=== PATIENT | female | born 1960 | race African-American/Black ===

== ENCOUNTER 2018-05-20 11:25 | Emergency (ER) | payer SELFPAY ==
[~2018-05-20] VITALS: Ht 175.3 cm; Wt 89.0 kg
[2018-05-20 11:44] VITALS: BP 130/67
[2018-05-20] MEDS ORDERED: KETOROLAC 60MG/2ML VIAL IM ONE (13:00)
== END 2018-05-20 15:10 | disposition home or self-care (01) ==
LOC: ER 11:25
DX: S83.91XA Sprain of unspecified site of right knee, initial encounter (principal); F41.9 Anxiety disorder, unspecified; E11.9 Type 2 diabetes mellitus without complications; E78.00 Pure hypercholesterolemia, unspecified; I10 Essential (primary) hypertension; Z87.891 Personal history of nicotine dependence; Z88.2 Allergy status to sulfonamides; X58.XXXA Exposure to other specified factors, initial encounter; Y93.01 Activity, walking, marching and hiking; Y92.89 Other specified places as the place of occurrence of the external cause; Y99.8 Other external cause status
CPT/HCPCS: 73562; 96372; 99283; J1885; L1830

== ENCOUNTER 2018-08-29 18:39 | Emergency (ER) | payer BC ==
[~2018-08-29] VITALS: Ht 170.2 cm; Wt 82.0 kg
[2018-08-29] MEDS ORDERED: KETOROLAC 60MG/2ML VIAL IM ONE (20:30)
[2018-08-29 20:51] LABS: CLARITY URINE CLEAR (CLEAR); COLOR URINE YELLOW (YELLOW); KETONES URINE NEGATIVE (NEGATIVE); LEUKOCYTE ESTERASE URINE NEGATIVE (NEGATIVE); NITRITE URINE NEGATIVE (NEGATIVE); OCCULT BLOOD URINE 1+ (NEGATIVE); PH URINE 6.5 (4.5-8.0); PROTEIN URINE 1+ (NEGATIVE); SPECIFIC GRAVITY URINE 1.009 (1.005-1.030); UROBILINOGEN URINE 0.2 E.U./dL (0.2-1.0)
[2018-08-29] MEDS ORDERED: HYDROCODONE/ACETAMINOPHEN 5/325MG TABLET PO ONE (21:15)
[2018-08-29 21:41] LABS: BASOPHILS % 1.3 % (0.0-2.0); HEMATOCRIT. 28.9 % (36.0-48.0); LYMPHOCYTES % 29.9 % (20.0-50.0); MEAN CORPUSCULAR HEMOGLOBIN 28.2 pg (28.0-32.0); MEAN CORPUSCULAR VOLUME 81.7 fL (81.0-99.0); MEAN PLATELET VOLUME 6.8 fl (7.4-10.4); MONOCYTES % 6.9 % (2.0-8.0); NEUTROPHILS % 60.9 % (40.0-76.0); PLATELET 259 x1000/uL (130-400); RED BLOOD CELL COUNT 3.54 mill/uL (4.2-5.4); RED CELL DISTRIBUTION WIDTH 15.4 % (11.6-14.6)
[2018-08-29 21:47] LABS: CHLORIDE 105 mEq/L (98-107)
[2018-08-29 23:26] VITALS: BP 168/78
== END 2018-08-29 23:31 | disposition home or self-care (01) ==
LOC: ER 18:39
DX: N28.1 Cyst of kidney, acquired (principal); N39.0 Urinary tract infection, site not specified; R31.0 Gross hematuria; N28.9 Disorder of kidney and ureter, unspecified; D64.9 Anemia, unspecified; I10 Essential (primary) hypertension; E11.9 Type 2 diabetes mellitus without complications
CPT/HCPCS: 36415; 74176; 80053; 81003; 85025; 96372; 99284; J1885

== ENCOUNTER 2019-07-03 19:13 | Emergency (ER) | payer BC ==
[~2019-07-03] VITALS: Ht 175.3 cm; Wt 85.0 kg
[2019-07-03] MEDS ORDERED: NAPROXEN 250MG TABLET PO ONE (20:00)
[2019-07-03] MEDS ORDERED: ACETAMINOPHEN 325MG TABLET PO ONE (20:00)
[2019-07-03 20:54] VITALS: BP 148/85
== END 2019-07-03 20:55 | disposition home or self-care (01) ==
LOC: ER 19:13
DX: M54.5 Low back pain (principal)
CPT/HCPCS: 99282; 99283

== ENCOUNTER 2019-12-08 08:48 | Inpatient (IN) | payer BC ==
[~2019-12-08] VITALS: Ht 165.1 cm; Wt 78.0 kg
[2019-12-08] MEDS ORDERED: ONDANSETRON HCL 4MG/2ML INJ IV STA (10:07)
[2019-12-08 10:16] LABS: BASOPHILS % 1.1 % (0.0-2.0); EOSINOPHILS % 1.1 % (0.0-5.0); HEMOGLOBIN. 9.9 g/dL (12.0-16.0); LYMPHOCYTES % 22.8 % (20.0-50.0); MEAN CORPUSCULAR VOLUME 84.4 fL (81.0-99.0); MEAN PLATELET VOLUME 7.5 fl (7.4-10.4); MONOCYTES % 5.9 % (2.0-8.0); NEUTROPHILS % 69.1 % (40.0-76.0); PLATELET 252 x1000/uL (130-400); RED BLOOD CELL COUNT 3.55 mill/uL (4.2-5.4); RED CELL DISTRIBUTION WIDTH 15.2 % (11.6-14.6)
[2019-12-08 10:20] LABS: CHLORIDE 106 mEq/L (98-107)
[2019-12-08] MEDS ORDERED: SODIUM CHLORIDE 0.9% 1,000 ML IV ONE (10:45)
[2019-12-08 10:49] LABS: CLARITY URINE CLEAR (CLEAR); COLOR URINE YELLOW (YELLOW); KETONES URINE NEGATIVE (NEGATIVE); LEUKOCYTE ESTERASE URINE TRACE (NEGATIVE); NITRITE URINE NEGATIVE (NEGATIVE); OCCULT BLOOD URINE NEGATIVE (NEGATIVE); PH URINE 5.5 (4.5-8.0); PROTEIN URINE 1+ (NEGATIVE); SPECIFIC GRAVITY URINE 1.012 (1.005-1.030); UROBILINOGEN URINE 0.2 E.U./dL (0.2-1.0)
[2019-12-08] MEDS ORDERED: CLONIDINE 0.2MG TABLET PO ONE (11:15)
[2019-12-08 22:00] VITALS: BP 167/78
[2019-12-08] MEDS ORDERED: ASPI-1497 MT (23:50)
[2019-12-08] MEDS ORDERED: BACL-141 MT (23:50)
[2019-12-08] MEDS ORDERED: MULT-25 MT (23:50)
[2019-12-08] MEDS ORDERED: HYDR-4134 MT (23:50)
[2019-12-08] MEDS ORDERED: LIP40 MT (23:50)
[2019-12-08] MEDS ORDERED: CALC0.253 MT (23:50)
[2019-12-08] MEDS ORDERED: AMLO-337 MT (23:50)
[2019-12-08] MEDS ORDERED: CARV25TA47 MT (23:50)
[2019-12-09] VITALS: BP 148/67
[2019-12-09] MEDS ORDERED: ACETAMINOPHEN 325MG TABLET PO PRN (01:00)
[2019-12-09] MEDS ORDERED: ONDANSETRON HCL 4MG/2ML INJ IV PRN (01:00)
[2019-12-09] MEDS ORDERED: HYDROCODONE/ACETAMINOPHEN 5/325MG TABLET PO PRN (01:00)
[2019-12-09] MEDS ORDERED: DEXTROSE 50% WATER 50ML SYRINGE IV PRN (01:00)
[2019-12-09] MEDS ORDERED: CARVEDILOL 12.5MG TABLET PO SCH (02:00)
[2019-12-09 04:00] VITALS: BP 132/68
[2019-12-09 06:43] LABS: BASOPHILS % 1.4 % (0.0-2.0); EOSINOPHILS % 1.5 % (0.0-5.0); HEMATOCRIT. 26.3 % (36.0-48.0); HEMOGLOBIN. 8.9 g/dL (12.0-16.0); LYMPHOCYTES % 37.8 % (20.0-50.0); MEAN CORPUSCULAR HEMOGLOBIN 28.4 pg (28.0-32.0); MEAN CORPUSCULAR VOLUME 83.6 fL (81.0-99.0); MEAN PLATELET VOLUME 7.6 fl (7.4-10.4); NEUTROPHILS % 51.3 % (40.0-76.0); PLATELET 201 x1000/uL (130-400); RED BLOOD CELL COUNT 3.14 mill/uL (4.2-5.4); RED CELL DISTRIBUTION WIDTH 15.4 % (11.6-14.6)
[2019-12-09 07:41] LABS: T4 FREE 1.24 ng/dL (0.76-1.46)
[2019-12-09 08:00] VITALS: BP 153/65
[2019-12-09] MEDS ORDERED: ATORVASTATIN MT SCH (09:00)
[2019-12-09] MEDS ORDERED: ENOXAPARIN 30MG/0.3ML SYR SUBCUT SCH (09:00)
[2019-12-09] MEDS ORDERED: AMLODIPINE 10MG TABLET PO SCH (09:00)
[2019-12-09] MEDS ORDERED: ASPIRIN 81MG EC TABLET PO SCH (09:00)
[2019-12-09] MEDS ORDERED: AMLODIPINE MT SCH (09:00)
[2019-12-09] MEDS ORDERED: [UNRECOGNIZED DRUG - OTHER] MT SCH (09:00)
[2019-12-09] MEDS: BLOOD SUGAR DIAGNOSTIC STRIP TEST SCH ×2 (11:29→16:32)
[2019-12-09] MEDS: INSULIN LISPRO 100 UNITS/ML SUBCUT SCH ×2 (11:30→16:33)
[2019-12-09 12:00] VITALS: BP 142/71
[2019-12-09 12:30] LABS: *AMPHETAMINES SCREEN URINE NEGATIVE (NEGATIVE); *BARBITURATES SCREEN URINE NEGATIVE (NEGATIVE); *BENZODIAZEPINES SCREEN URINE NEGATIVE (NEGATIVE); *COCAINE SCREEN URINE NEGATIVE (NEGATIVE); CANNABINOID URINE SCREEN NEGATIVE (NEGATIVE); METHADONE URINE SCREEN NEGATIVE (NEGATIVE); OPIATES URINE SCREEN NEGATIVE (NEGATIVE); PHENCYCLIDINE URINE SCREEN NEGATIVE (NEGATIVE)
[2019-12-09 16:00] VITALS: BP 151/82
[2019-12-09] MEDS ORDERED: ATORVASTATIN CALCIUM 10MG TABLET PO SCH (21:00)
[2019-12-09] MEDS ORDERED: ATORVASTATIN CALCIUM 40MG TABLET PO SCH (21:00)
== END 2019-12-09 18:41 | disposition home or self-care (01) | DRG 391 ==
LOC: ER 08:48 → 5WST 16:38 → EDBEDREQ 16:46 → ENRESERV 19:11 → 5WST 20:40
PROVIDERS: ADMIT Ophthalmology; ATTEND Ophthalmology
DX: K52.9 Noninfective gastroenteritis and colitis, unspecified (principal); N17.0 Acute kidney failure with tubular necrosis; N18.5 Chronic kidney disease, stage 5; I12.0 Hypertensive chronic kidney disease with stage 5 chronic kidney disease or end stage renal disease; E11.22 Type 2 diabetes mellitus with diabetic chronic kidney disease; E78.00 Pure hypercholesterolemia, unspecified; K57.30 Diverticulosis of large intestine without perforation or abscess without bleeding; Z82.49 Family history of ischemic heart disease and other diseases of the circulatory system; Z83.3 Family history of diabetes mellitus; Z79.899 Other long term (current) drug therapy; D64.9 Anemia, unspecified
CPT/HCPCS: 36415; 71045; 74176; 76770; 80048; 80053; 80061; 80305; 81003; 82962; 83036; 84439; 84443; 85025; 93005; 99285; J1650; J2405; J7030

== ENCOUNTER 2020-02-02 18:49 | Emergency (ER) | payer BC ==
[~2020-02-02] VITALS: Ht 167.6 cm; Wt 80.0 kg
[~2020-02-02 18:49] MED LIST: AMLO-337 MT; ASPI-1497 MT; BACL-141 MT; CALC0.253 MT; CARV25TA47 MT; HYDR-4134 MT; LIP40 MT; MULT-25 MT
[2020-02-02 18:54] VITALS: BP 184/71
[2020-02-02] MEDS ORDERED: CYCLOBENZAPRINE 10MG TABLET PO ONE (19:45)
[2020-02-02 19:55] LABS: CLARITY URINE CLEAR (CLEAR); COLOR URINE YELLOW (YELLOW); KETONES URINE NEGATIVE (NEGATIVE); LEUKOCYTE ESTERASE URINE NEGATIVE (NEGATIVE); NITRITE URINE NEGATIVE (NEGATIVE); OCCULT BLOOD URINE NEGATIVE (NEGATIVE); PROTEIN URINE TRACE (NEGATIVE); SPECIFIC GRAVITY URINE 1.012 (1.005-1.030); UROBILINOGEN URINE 0.2 E.U./dL (0.2-1.0)
[2020-02-02] MEDS ORDERED: HYDROCODONE/ACETAMINOPHEN 5/325MG TABLET PO ONE (21:00)
== END 2020-02-02 21:05 | disposition home or self-care (01) ==
LOC: ER 18:49
DX: M54.9 Dorsalgia, unspecified (principal); J44.1 Chronic obstructive pulmonary disease with (acute) exacerbation; E78.00 Pure hypercholesterolemia, unspecified; I10 Essential (primary) hypertension; E11.9 Type 2 diabetes mellitus without complications; Z88.2 Allergy status to sulfonamides; Z79.899 Other long term (current) drug therapy; Z79.82 Long term (current) use of aspirin
CPT/HCPCS: 81003; 99283

== ENCOUNTER 2020-12-07 17:20 | Inpatient (IN) | payer BC ==
[~2020-12-07] VITALS: Ht 175.3 cm; Wt 96.2 kg
[2020-12-07] MEDS ORDERED: SODIUM CHLORIDE 0.9% 1,000 ML IV ONE (19:15)
[2020-12-07 20:20] LABS: BASOPHILS % 0.7 % (0.0-2.0); EOSINOPHILS % 0.1 % (0.0-5.0); HEMATOCRIT. 35.6 % (36.0-48.0); HEMOGLOBIN. 11.7 g/dL (12.0-16.0); LYMPHOCYTES % 15.2 % (20.0-50.0); MEAN CORPUSCULAR HEMOGLOBIN 27.8 pg (28.0-32.0); MEAN CORPUSCULAR VOLUME 84.7 fL (81.0-99.0); MEAN PLATELET VOLUME 8.2 fl (7.4-10.4); MONOCYTES % 9.4 % (2.0-8.0); NEUTROPHILS % 74.6 % (40.0-76.0); PLATELET 368 x1000/uL (130-400); RED CELL DISTRIBUTION WIDTH 18.7 % (11.6-14.6)
[2020-12-07 20:23] LABS: CHLORIDE 110 mEq/L (98-107)
[2020-12-07] MEDS ORDERED: ASPIRIN 325MG EC TABLET PO ONE (21:00)
[2020-12-07] MEDS ORDERED: DOCUSATE SODIUM 100MG CAPSULE PO PRN (22:00)
[2020-12-07] MEDS ORDERED: IPRATROPIUM/ALBUTEROL 0.5-3(2.5)MG/3ML NEB HHN PRN (22:00)
[2020-12-07] MEDS ORDERED: ONDANSETRON HCL 4MG/2ML INJ IV PRN (22:00)
[2020-12-07] MEDS ORDERED: CARVEDILOL 12.5MG TABLET PO NR (22:00)
[2020-12-07] MEDS ORDERED: ASPIRIN 81MG EC TABLET PO SCH (22:00)
[2020-12-07 23:24] LABS: CLARITY URINE CLEAR (CLEAR); COLOR URINE YELLOW (YELLOW); KETONES URINE NEGATIVE (NEGATIVE); LEUKOCYTE ESTERASE URINE 1+ (NEGATIVE); NITRITE URINE NEGATIVE (NEGATIVE); OCCULT BLOOD URINE 3+ (NEGATIVE); PH URINE 5.5 (4.5-8.0); PROTEIN URINE 1+ (NEGATIVE); UROBILINOGEN URINE 0.2 E.U./dL (0.2-1.0)
[2020-12-08] MEDS ORDERED: LEVOFLOXACIN 500MG PREMIX 100 ML IV STA (00:27)
[2020-12-08] MEDS ORDERED: CARVEDILOL 12.5MG TABLET PO NR (01:00)
[2020-12-08] MEDS: ENOXAPARIN 30MG/0.3ML SYR SUBCUT SCH ×2 (02:10→21:20)
[2020-12-08 03:46] LABS: BASOPHILS % 0.6 % (0.0-2.0); EOSINOPHILS % 0.6 % (0.0-5.0); HEMATOCRIT. 35.9 % (36.0-48.0); HEMOGLOBIN. 11.6 g/dL (12.0-16.0); LYMPHOCYTES % 18.2 % (20.0-50.0); MEAN CORPUSCULAR HEMOGLOBIN 28.1 pg (28.0-32.0); MEAN CORPUSCULAR VOLUME 86.7 fL (81.0-99.0); MEAN PLATELET VOLUME 7.4 fl (7.4-10.4); MONOCYTES % 9.4 % (2.0-8.0); NEUTROPHILS % 71.2 % (40.0-76.0); PLATELET 318 x1000/uL (130-400); RED BLOOD CELL COUNT 4.14 mill/uL (4.2-5.4); RED CELL DISTRIBUTION WIDTH 18.4 % (11.6-14.6)
[2020-12-08 04:16] LABS: FOLIC ACID (FOLATE) SERUM 4.5 ng/mL (>5.38)
[2020-12-08] MEDS: FAMOTIDINE 20MG TABLET PO SCH (06:33)
[2020-12-08] MEDS: CALCITRIOL 0.25MCG CAPSULE PO SCH (09:00)
[2020-12-08] MEDS ORDERED: ATORVASTATIN CALCIUM 40MG TABLET PO SCH (09:00)
[2020-12-08] MEDS: HYDRALAZINE HCL 25MG TABLET PO SCH ×2 (10:08→21:20)
[2020-12-08 11:30] VITALS: BP 195/70
[2020-12-08] MEDS ORDERED: FUROSEMIDE 40MG/4ML VIAL IVP SCH (12:00)
[2020-12-08] MEDS: ASPIRIN 81MG EC TABLET PO SCH (12:01)
[2020-12-08] MEDS: MULTIVITAMINS,THER W-MINERALS TABLET PO SCH (12:03)
[2020-12-08] MEDS: FOLIC ACID 1MG TABLET PO SCH (12:04)
[2020-12-08 16:00] VITALS: BP 150/74
[2020-12-08] MEDS: AMLODIPINE 10MG TABLET PO SCH (16:39)
[2020-12-08 16:56] LABS: CREATINE KINASE 13008 IU/L (26-192)
[2020-12-08 20:00] VITALS: BP 155/78
[2020-12-08] MEDS: CARVEDILOL 12.5MG TABLET PO SCH (21:20)
[2020-12-08] MEDS ORDERED: DEXTROSE 50% WATER 50ML SYRINGE IV PRN (23:00)
[2020-12-09] VITALS: BP 156/79
[2020-12-09 04:00] VITALS: BP 175/83
[2020-12-09] MEDS: CLONIDINE 0.1MG TABLET PO PRN ×2 (05:23→13:28)
[2020-12-09] MEDS: FAMOTIDINE 20MG TABLET PO SCH (06:13)
[2020-12-09] MEDS: BLOOD SUGAR DIAGNOSTIC STRIP TEST SCH ×4 (06:13→21:59)
[2020-12-09] MEDS: INSULIN LISPRO 100 UNITS/ML SUBCUT SCH ×4 (06:13→21:59)
[2020-12-09 06:33] LABS: BASOPHILS % 0.7 % (0.0-2.0); EOSINOPHILS % 0.6 % (0.0-5.0); HEMATOCRIT. 36.9 % (36.0-48.0); HEMOGLOBIN. 11.8 g/dL (12.0-16.0); LYMPHOCYTES % 18.1 % (20.0-50.0); MEAN CORPUSCULAR HEMOGLOBIN 27.6 pg (28.0-32.0); MEAN CORPUSCULAR VOLUME 86.4 fL (81.0-99.0); MONOCYTES % 8.3 % (2.0-8.0); NEUTROPHILS % 72.3 % (40.0-76.0); PLATELET 351 x1000/uL (130-400); RED BLOOD CELL COUNT 4.27 mill/uL (4.2-5.4)
[2020-12-09 07:49] LABS: CHLORIDE 112 mEq/L (98-107)
[2020-12-09 08:00] VITALS: BP 109/67
[2020-12-09 08:04] LABS: PHOSPHORUS 4.2 mg/dL (2.5-4.9)
[2020-12-09] MEDS: AMLODIPINE 10MG TABLET PO SCH (09:00)
[2020-12-09] MEDS: HYDRALAZINE HCL 25MG TABLET PO SCH (09:00)
[2020-12-09] MEDS: CARVEDILOL 12.5MG TABLET PO SCH ×2 (09:00→21:58)
[2020-12-09] MEDS: CALCITRIOL 0.25MCG CAPSULE PO SCH (09:24)
[2020-12-09] MEDS: FOLIC ACID 1MG TABLET PO SCH (09:24)
[2020-12-09] MEDS: MULTIVITAMINS,THER W-MINERALS TABLET PO SCH (09:24)
[2020-12-09] MEDS: ASPIRIN 81MG EC TABLET PO SCH (09:24)
[2020-12-09 09:49] LABS: CREATINE KINASE 11437 IU/L (26-192)
[2020-12-09 11:40] LABS: HEPATITIS B SURFACE ANTIGEN NEGATIVE
[2020-12-09 12:00] VITALS: BP 175/84
[2020-12-09] MEDS: SODIUM CHLORIDE 0.45% 1,000 ML IV SCH ×2 (12:57→23:13)
[2020-12-09 14:11] LABS: A/G RATIO 0.8 (0.7-1.7); ALBUMIN 2.4 g/dL (2.9-4.4); ALPHA-1-GLOBULIN 0.2 g/dL (0.0-0.4); ALPHA-2-GLOBULIN 0.8 g/dL (0.4-1.0); BETA GLOBULIN 0.5 g/dL (0.7-1.3); GAMMA GLOBULINS 1.6 g/dL (0.4-1.8); GLOBULIN TOTAL 3.2 g/dL (2.2-3.9); M-SPIKE Not Observed g/dL (Not Observed); TOTAL PROTEIN SERUM 5.6 g/dL (6.0-8.5)
[2020-12-09 16:00] VITALS: BP 103/67
[2020-12-09 20:00] VITALS: BP 158/83
[2020-12-09] MEDS: ENOXAPARIN 30MG/0.3ML SYR SUBCUT SCH (21:57)
[2020-12-09] MEDS: HYDRALAZINE HCL 50MG TABLET PO SCH (21:58)
[2020-12-10] VITALS: BP 110/61
[2020-12-10 04:00] VITALS: BP 137/74
[2020-12-10] MEDS: FAMOTIDINE 20MG TABLET PO SCH (06:15)
[2020-12-10] MEDS: BLOOD SUGAR DIAGNOSTIC STRIP TEST SCH ×4 (06:17→21:07)
[2020-12-10] MEDS: INSULIN LISPRO 100 UNITS/ML SUBCUT SCH ×4 (06:17→21:16)
[2020-12-10 07:31] LABS: BASOPHILS % 0.9 % (0.0-2.0); EOSINOPHILS % 1.4 % (0.0-5.0); HEMATOCRIT. 35.9 % (36.0-48.0); HEMOGLOBIN. 11.7 g/dL (12.0-16.0); LYMPHOCYTES % 20.1 % (20.0-50.0); MEAN CORPUSCULAR VOLUME 86.1 fL (81.0-99.0); MEAN PLATELET VOLUME 7.9 fl (7.4-10.4); MONOCYTES % 10.8 % (2.0-8.0); NEUTROPHILS % 66.8 % (40.0-76.0); PLATELET 340 x1000/uL (130-400); RED BLOOD CELL COUNT 4.17 mill/uL (4.2-5.4); RED CELL DISTRIBUTION WIDTH 18.8 % (11.6-14.6)
[2020-12-10 07:39] LABS: CHLORIDE 112 mEq/L (98-107)
[2020-12-10 07:47] LABS: PHOSPHORUS 3.8 mg/dL (2.5-4.9)
[2020-12-10 08:00] VITALS: BP 156/71
[2020-12-10 08:17] LABS: CREATINE KINASE 9501 IU/L (26-192)
[2020-12-10] MEDS: MULTIVITAMINS,THER W-MINERALS TABLET PO SCH (08:42)
[2020-12-10] MEDS: HYDRALAZINE HCL 50MG TABLET PO SCH ×2 (08:42→21:16)
[2020-12-10] MEDS: CARVEDILOL 12.5MG TABLET PO SCH ×2 (08:42→21:15)
[2020-12-10] MEDS: CALCITRIOL 0.25MCG CAPSULE PO SCH (08:42)
[2020-12-10] MEDS: AMLODIPINE 10MG TABLET PO SCH (08:42)
[2020-12-10] MEDS: ASPIRIN 81MG EC TABLET PO SCH (08:42)
[2020-12-10] MEDS: FOLIC ACID 1MG TABLET PO SCH (08:43)
[2020-12-10 12:00] VITALS: BP 120/61
[2020-12-10 16:00] VITALS: BP 156/72
[2020-12-10] MEDS: SODIUM BICARBONATE 50 MEQ in SODIUM CHLORIDE 0.45% 1,000 ML IV SCH (18:35)
[2020-12-10 20:00] VITALS: BP 154/78
[2020-12-10] MEDS: ENOXAPARIN 30MG/0.3ML SYR SUBCUT SCH (21:16)
[2020-12-11] VITALS: BP 126/63
[2020-12-11] MEDS: SODIUM BICARBONATE 50 MEQ in SODIUM CHLORIDE 0.45% 1,000 ML IV SCH ×3 (03:00→23:26)
[2020-12-11 04:00] VITALS: BP 157/82
[2020-12-11] MEDS: METHYLPREDNISOLONE SOD SUCC 40 MG/ML VIAL IV SCH ×2 (06:00→13:21)
[2020-12-11] MEDS: FAMOTIDINE 20MG TABLET PO SCH (06:49)
[2020-12-11] MEDS: INSULIN LISPRO 100 UNITS/ML SUBCUT SCH ×4 (06:49→20:55)
[2020-12-11] MEDS: BLOOD SUGAR DIAGNOSTIC STRIP TEST SCH ×4 (06:49→20:44)
[2020-12-11 07:06] LABS: BASOPHILS % 0.4 % (0.0-2.0); EOSINOPHILS % 0.4 % (0.0-5.0); HEMOGLOBIN. 11.8 g/dL (12.0-16.0); LYMPHOCYTES % 12.3 % (20.0-50.0); MEAN CORPUSCULAR HEMOGLOBIN 27.9 pg (28.0-32.0); MEAN PLATELET VOLUME 7.8 fl (7.4-10.4); MONOCYTES % 6.6 % (2.0-8.0); NEUTROPHILS % 80.3 % (40.0-76.0); PLATELET 399 x1000/uL (130-400); RED BLOOD CELL COUNT 4.23 mill/uL (4.2-5.4); RED CELL DISTRIBUTION WIDTH 19.3 % (11.6-14.6)
[2020-12-11 07:13] LABS: CHLORIDE 110 mEq/L (98-107)
[2020-12-11 07:22] LABS: GAMMA GLUTAMYL TRANSPEPTIDASE 13 IU/L (7-32)
[2020-12-11 07:28] LABS: T4 FREE 1.37 ng/dL (0.76-1.46)
[2020-12-11 08:00] VITALS: BP 133/71
[2020-12-11] MEDS ORDERED: METHYLPREDNISOLONE SOD SUCC 40 MG/ML VIAL IV SCH (08:00)
[2020-12-11 08:43] LABS: CREATINE KINASE 12562 IU/L (26-192)
[2020-12-11] MEDS ORDERED: FOLIC ACID 1MG TABLET PO SCH (09:00)
[2020-12-11] MEDS: ASPIRIN 81MG EC TABLET PO SCH (11:12)
[2020-12-11] MEDS: HYDRALAZINE HCL 50MG TABLET PO SCH ×2 (11:12→20:53)
[2020-12-11] MEDS: CARVEDILOL 12.5MG TABLET PO SCH ×2 (11:12→11:14)
[2020-12-11] MEDS: MULTIVITAMINS,THER W-MINERALS TABLET PO SCH (11:13)
[2020-12-11] MEDS: MYCOPHENOLATE MOFETIL 250MG CAPSULE PO SCH ×2 (11:13→20:53)
[2020-12-11] MEDS: AMLODIPINE 10MG TABLET PO SCH (11:13)
[2020-12-11] MEDS: CALCITRIOL 0.25MCG CAPSULE PO SCH (11:14)
[2020-12-11 12:00] VITALS: BP 118/70
[2020-12-11] MEDS ORDERED: FUROSEMIDE 40MG/4ML VIAL IVP SCH (12:15)
[2020-12-11 16:00] VITALS: BP 119/80
[2020-12-11] MEDS ORDERED: HALOPERIDOL LACTATE 5MG/ML VIAL IM PRN (18:30)
[2020-12-11 20:00] VITALS: BP 119/78
[2020-12-11] MEDS: ENOXAPARIN 30MG/0.3ML SYR SUBCUT SCH (20:53)
[2020-12-12] VITALS: BP 129/86
[2020-12-12 04:00] VITALS: BP 121/78
[2020-12-12] MEDS: METHYLPREDNISOLONE SOD SUCC 40 MG/ML VIAL IV SCH ×4 (06:00→18:32)
[2020-12-12 07:00] LABS: BASOPHILS % 0.1 % (0.0-2.0); HEMOGLOBIN. 11.2 g/dL (12.0-16.0); MEAN CORPUSCULAR HEMOGLOBIN 27.9 pg (28.0-32.0); MEAN CORPUSCULAR VOLUME 84.4 fL (81.0-99.0); MEAN PLATELET VOLUME 7.8 fl (7.4-10.4); MONOCYTES % 5.7 % (2.0-8.0); NEUTROPHILS % 83.2 % (40.0-76.0); PLATELET 380 x1000/uL (130-400); RED BLOOD CELL COUNT 4.03 mill/uL (4.2-5.4); RED CELL DISTRIBUTION WIDTH 19.2 % (11.6-14.6)
[2020-12-12] MEDS: BLOOD SUGAR DIAGNOSTIC STRIP TEST SCH ×4 (07:10→21:00)
[2020-12-12] MEDS: INSULIN LISPRO 100 UNITS/ML SUBCUT SCH ×4 (07:40→22:46)
[2020-12-12] MEDS: SODIUM BICARBONATE 50 MEQ in SODIUM CHLORIDE 0.45% 1,000 ML IV SCH (07:50)
[2020-12-12 08:00] VITALS: BP 129/74
[2020-12-12 09:09] LABS: ANTI-JO 1 ABS <0.2 AI (0.0-0.9)
[2020-12-12] MEDS: HYDRALAZINE HCL 50MG TABLET PO SCH ×2 (09:28→22:43)
[2020-12-12] MEDS: CARVEDILOL 12.5MG TABLET PO SCH ×2 (09:28→22:44)
[2020-12-12] MEDS: CALCITRIOL 0.25MCG CAPSULE PO SCH (09:28)
[2020-12-12] MEDS: MYCOPHENOLATE MOFETIL 250MG CAPSULE PO SCH ×2 (09:28→22:45)
[2020-12-12] MEDS: AMLODIPINE 10MG TABLET PO SCH (09:29)
[2020-12-12] MEDS: MULTIVITAMINS,THER W-MINERALS TABLET PO SCH (09:29)
[2020-12-12] MEDS: ASPIRIN 81MG EC TABLET PO SCH (09:29)
[2020-12-12] MEDS: FAMOTIDINE 20MG TABLET PO SCH (09:33)
[2020-12-12] MEDS ORDERED: FUROSEMIDE 40MG TABLET PO NR (10:00)
[2020-12-12 10:09] LABS: ANTI-DNA DOUBLE STRANDED QUANT < 1 IU/mL (0-9)
[2020-12-12 11:34] LABS: CREATINE KINASE 11127 IU/L (26-192)
[2020-12-12 12:00] VITALS: BP 139/83
[2020-12-12] MEDS: ACETAMINOPHEN 325MG TABLET PO PRN ×2 (12:49→17:36)
[2020-12-12 16:00] VITALS: BP 133/75
[2020-12-12 20:00] VITALS: BP 124/68
[2020-12-12] MEDS: LORAZEPAM 2MG/ML CPJ IM PRN (20:00)
[2020-12-12] MEDS ORDERED: METHYLPREDNISOLONE SOD SUCC 40 MG/ML VIAL IV SCH (21:00)
[2020-12-12] MEDS: ENOXAPARIN 30MG/0.3ML SYR SUBCUT SCH (22:43)
[2020-12-13] VITALS: BP 137/74
[2020-12-13] MEDS: METHYLPREDNISOLONE SOD SUCC 40 MG/ML VIAL IV SCH ×5 (00:28→23:44)
[2020-12-13] MEDS: SODIUM BICARBONATE 50 MEQ in SODIUM CHLORIDE 0.45% 1,000 ML IV SCH ×4 (00:29→17:26)
[2020-12-13 04:00] VITALS: BP 133/69
[2020-12-13] MEDS: LORAZEPAM 2MG/ML CPJ IM PRN (05:27)
[2020-12-13 05:32] LABS: BASOPHILS % 0.1 % (0.0-2.0); HEMOGLOBIN. 11.3 g/dL (12.0-16.0); LYMPHOCYTES % 7.9 % (20.0-50.0); MEAN CORPUSCULAR VOLUME 84.3 fL (81.0-99.0); MEAN PLATELET VOLUME 8.2 fl (7.4-10.4); MONOCYTES % 3.8 % (2.0-8.0); NEUTROPHILS % 88.2 % (40.0-76.0); PLATELET 351 x1000/uL (130-400); RED BLOOD CELL COUNT 4.03 mill/uL (4.2-5.4); RED CELL DISTRIBUTION WIDTH 18.9 % (11.6-14.6)
[2020-12-13] MEDS: FAMOTIDINE 20MG TABLET PO SCH (06:15)
[2020-12-13] MEDS: BLOOD SUGAR DIAGNOSTIC STRIP TEST SCH ×4 (06:15→21:22)
[2020-12-13] MEDS: INSULIN LISPRO 100 UNITS/ML SUBCUT SCH ×5 (06:17→21:21)
[2020-12-13 06:30] LABS: CHLORIDE 110 mEq/L (98-107)
[2020-12-13 07:07] LABS: CREATINE KINASE 7788 IU/L (26-192)
[2020-12-13 08:00] VITALS: BP 146/74
[2020-12-13] MEDS ORDERED: METHOTREXATE SODIUM 2 . 5MG TABLET PO SCH (09:00)
[2020-12-13] MEDS: MYCOPHENOLATE MOFETIL 250MG CAPSULE PO SCH ×2 (09:31→21:21)
[2020-12-13] MEDS: CALCITRIOL 0.25MCG CAPSULE PO SCH (09:32)
[2020-12-13] MEDS: ASPIRIN 81MG EC TABLET PO SCH (09:33)
[2020-12-13] MEDS: AMLODIPINE 10MG TABLET PO SCH (09:33)
[2020-12-13] MEDS: HYDRALAZINE HCL 50MG TABLET PO SCH ×2 (09:33→21:22)
[2020-12-13] MEDS: CARVEDILOL 12.5MG TABLET PO SCH ×2 (09:33→21:21)
[2020-12-13] MEDS: MULTIVITAMINS,THER W-MINERALS TABLET PO SCH (09:34)
[2020-12-13] MEDS ORDERED: FUROSEMIDE 40MG TABLET PO NR (10:00)
[2020-12-13 12:00] VITALS: BP 98/65
[2020-12-13] MEDS ORDERED: SODIUM POLYSTYRENE SULFONATE 15 G/60 ML BOT PO SCH (12:00)
[2020-12-13 13:11] LABS: ANA IFA Negative (.)
[2020-12-13 13:11] LABS: ALDOLASE < 1.2 U/L (3.3-10.3); ANGIOTENSION CONVERTING ENZYME 83 U/L (14-82)
[2020-12-13 15:06] LABS: ACTIN (SMOOTH MUSCLE) ANTIBODY 5 Units (0-19); ANTI-MYELOPEROXIDASE AB < 9.0 U/mL (0.0-9.0); ANTI-PROTEINASE 3 ABS < 3.5 U/mL (0.0-3.5)
[2020-12-13 16:00] VITALS: BP 100/63
[2020-12-13 20:00] VITALS: BP 149/71
[2020-12-13] MEDS: ENOXAPARIN 30MG/0.3ML SYR SUBCUT SCH (21:20)
[2020-12-14] VITALS: BP 100/58
[2020-12-14 04:00] VITALS: BP 126/65
[2020-12-14] MEDS: SODIUM BICARBONATE 50 MEQ in SODIUM CHLORIDE 0.45% 1,000 ML IV SCH ×2 (04:22→17:45)
[2020-12-14] MEDS: METHYLPREDNISOLONE SOD SUCC 40 MG/ML VIAL IV SCH ×3 (05:30→21:45)
[2020-12-14] MEDS: BLOOD SUGAR DIAGNOSTIC STRIP TEST SCH ×4 (06:47→21:00)
[2020-12-14] MEDS: INSULIN LISPRO 100 UNITS/ML SUBCUT SCH ×4 (06:48→21:00)
[2020-12-14] MEDS: FAMOTIDINE 20MG TABLET PO SCH (06:48)
[2020-12-14 08:40] LABS: CHLORIDE 107 mEq/L (98-107)
[2020-12-14 08:50] LABS: C REACTIVE PROTEIN QUANT 6.6 mg/L (0.0-3.0)
[2020-12-14] MEDS: MULTIVITAMINS,THER W-MINERALS TABLET PO SCH (09:00)
[2020-12-14] MEDS: CARVEDILOL 12.5MG TABLET PO SCH ×2 (09:00→21:42)
[2020-12-14] MEDS: AMLODIPINE 10MG TABLET PO SCH (09:00)
[2020-12-14] MEDS: CALCITRIOL 0.25MCG CAPSULE PO SCH (09:01)
[2020-12-14] MEDS: MYCOPHENOLATE MOFETIL 250MG CAPSULE PO SCH ×2 (09:03→21:41)
[2020-12-14] MEDS: ASPIRIN 81MG EC TABLET PO SCH (09:03)
[2020-12-14 09:06] LABS: HEMATOCRIT. 38.3 % (36.0-48.0); HEMOGLOBIN. 12.4 g/dL (12.0-16.0); MEAN CORPUSCULAR HEMOGLOBIN 27.8 pg (28.0-32.0); MEAN PLATELET VOLUME 8.8 fl (7.4-10.4); PLATELET 375 x1000/uL (130-400); RED BLOOD CELL COUNT 4.45 mill/uL (4.2-5.4); RED CELL DISTRIBUTION WIDTH 19.2 % (11.6-14.6)
[2020-12-14 09:19] LABS: CREATINE KINASE 6985 IU/L (26-192)
[2020-12-14 12:00] VITALS: BP 104/57
[2020-12-14] MEDS ORDERED: SODIUM POLYSTYRENE SULFONATE 15 G/60 ML BOT PO NR (12:30)
[2020-12-14 16:00] VITALS: BP 138/76
[2020-12-14 16:09] LABS: PLATELET ESTIMATE NORMAL
[2020-12-14 20:00] VITALS: BP 149/74
[2020-12-14] MEDS: ENOXAPARIN 30MG/0.3ML SYR SUBCUT SCH (21:44)
[2020-12-15] VITALS: BP 103/70
[2020-12-15 04:00] VITALS: BP 139/70
[2020-12-15] MEDS: SODIUM BICARBONATE 50 MEQ in SODIUM CHLORIDE 0.45% 1,000 ML IV SCH ×2 (04:10→16:55)
[2020-12-15] MEDS: METHYLPREDNISOLONE SOD SUCC 40 MG/ML VIAL IV SCH ×3 (06:40→21:59)
[2020-12-15] MEDS: FAMOTIDINE 20MG TABLET PO SCH (06:40)
[2020-12-15] MEDS: BLOOD SUGAR DIAGNOSTIC STRIP TEST SCH ×4 (06:55→21:06)
[2020-12-15] MEDS: ACETAMINOPHEN 325MG TABLET PO PRN (06:57)
[2020-12-15] MEDS: INSULIN LISPRO 100 UNITS/ML SUBCUT SCH ×4 (07:08→22:12)
[2020-12-15 07:27] LABS: HEMATOCRIT. 36.9 % (36.0-48.0); HEMOGLOBIN. 12.1 g/dL (12.0-16.0); MEAN CORPUSCULAR HEMOGLOBIN 27.8 pg (28.0-32.0); MEAN CORPUSCULAR VOLUME 84.4 fL (81.0-99.0); MEAN PLATELET VOLUME 8.5 fl (7.4-10.4); PLATELET 359 x1000/uL (130-400); RED BLOOD CELL COUNT 4.36 mill/uL (4.2-5.4)
[2020-12-15 08:00] VITALS: BP 146/74
[2020-12-15 08:46] LABS: CHLORIDE 104 mEq/L (98-107)
[2020-12-15 09:01] LABS: PHOSPHORUS 7.4 mg/dL (2.5-4.9)
[2020-12-15 09:11] LABS: ANTI-CARDIOLIPIN AB IGG < 9 GPL U/mL (0-14); ANTI-CARDIOLIPIN AB IGM 9 MPL U/mL (0-12)
[2020-12-15 09:40] LABS: CREATINE KINASE 7474 IU/L (26-192)
[2020-12-15] MEDS: CARVEDILOL 12.5MG TABLET PO SCH ×2 (09:54→21:59)
[2020-12-15] MEDS: MYCOPHENOLATE MOFETIL 250MG CAPSULE PO SCH ×2 (09:55→21:58)
[2020-12-15] MEDS: CALCITRIOL 0.25MCG CAPSULE PO SCH (09:55)
[2020-12-15] MEDS: ASPIRIN 81MG EC TABLET PO SCH (09:55)
[2020-12-15] MEDS: MULTIVITAMINS,THER W-MINERALS TABLET PO SCH (09:55)
[2020-12-15 12:00] VITALS: BP 164/75
[2020-12-15 12:35] LABS: PLATELET ESTIMATE NORMAL
[2020-12-15] MEDS: CLONIDINE 0.1MG TABLET PO PRN (13:43)
[2020-12-15 16:00] VITALS: BP 150/64
[2020-12-15] MEDS: LORAZEPAM 2MG/ML CPJ IM PRN (16:55)
[2020-12-15 20:00] VITALS: BP 156/73
[2020-12-15] MEDS: ENOXAPARIN 30MG/0.3ML SYR SUBCUT SCH (22:10)
[2020-12-16] VITALS: BP 136/78
[2020-12-16] MEDS: SODIUM BICARBONATE 50 MEQ in SODIUM CHLORIDE 0.45% 1,000 ML IV SCH (00:33)
[2020-12-16 04:00] VITALS: BP 148/73
[2020-12-16 06:17] LABS: BASOPHILS % 0.1 % (0.0-2.0); HEMATOCRIT. 35.4 % (36.0-48.0); HEMOGLOBIN. 11.9 g/dL (12.0-16.0); LYMPHOCYTES % 7.7 % (20.0-50.0); MEAN CORPUSCULAR HEMOGLOBIN 28.1 pg (28.0-32.0); MEAN CORPUSCULAR VOLUME 83.9 fL (81.0-99.0); MEAN PLATELET VOLUME 8.5 fl (7.4-10.4); MONOCYTES % 4.7 % (2.0-8.0); NEUTROPHILS % 87.5 % (40.0-76.0); PLATELET 312 x1000/uL (130-400); RED BLOOD CELL COUNT 4.22 mill/uL (4.2-5.4); RED CELL DISTRIBUTION WIDTH 19.1 % (11.6-14.6)
[2020-12-16] MEDS: BLOOD SUGAR DIAGNOSTIC STRIP TEST SCH ×4 (06:26→21:01)
[2020-12-16] MEDS: METHYLPREDNISOLONE SOD SUCC 40 MG/ML VIAL IV SCH ×3 (06:33→21:49)
[2020-12-16] MEDS: FAMOTIDINE 20MG TABLET PO SCH (06:33)
[2020-12-16 07:04] LABS: CHLORIDE 104 mEq/L (98-107)
[2020-12-16 07:16] LABS: PHOSPHORUS 7.4 mg/dL (2.5-4.9)
[2020-12-16 07:49] LABS: CREATINE KINASE 7314 IU/L (26-192)
[2020-12-16 08:00] VITALS: BP 135/79
[2020-12-16] MEDS: MYCOPHENOLATE MOFETIL 250MG CAPSULE PO SCH ×2 (09:00→20:59)
[2020-12-16] MEDS: ASPIRIN 81MG EC TABLET PO SCH (10:44)
[2020-12-16] MEDS: CARVEDILOL 12.5MG TABLET PO SCH ×2 (10:44→20:59)
[2020-12-16] MEDS: MULTIVITAMINS,THER W-MINERALS TABLET PO SCH (10:44)
[2020-12-16] MEDS: CALCITRIOL 0.25MCG CAPSULE PO SCH (10:44)
[2020-12-16] MEDS: AMLODIPINE 2.5MG TABLET PO SCH (10:47)
[2020-12-16] MEDS: INSULIN LISPRO 100 UNITS/ML SUBCUT SCH ×4 (10:53→21:01)
[2020-12-16 12:00] VITALS: BP 130/74
[2020-12-16] MEDS: SODIUM BICARBONATE 75 MEQ in SODIUM CHLORIDE 0.45% 1,000 ML IV SCH (12:20)
[2020-12-16 13:07] LABS: ATYPICAL P-ANCA <1:20 titer (Neg:<1:20); CYTOPLASMIC C-ANCA <1:20 titer (Neg:<1:20); PERINUCLEAR P-ANCA <1:20 titer (Neg:<1:20)
[2020-12-16 16:00] VITALS: BP 140/74
[2020-12-16 20:00] VITALS: BP 161/82
[2020-12-16] MEDS: ENOXAPARIN 30MG/0.3ML SYR SUBCUT SCH (21:49)
[2020-12-17 04:00] VITALS: BP 120/75
[2020-12-17] MEDS: METHYLPREDNISOLONE SOD SUCC 40 MG/ML VIAL IV SCH ×3 (05:36→21:47)
[2020-12-17] MEDS: BLOOD SUGAR DIAGNOSTIC STRIP TEST SCH ×4 (06:16→21:47)
[2020-12-17] MEDS: INSULIN LISPRO 100 UNITS/ML SUBCUT SCH ×4 (06:17→22:02)
[2020-12-17 08:00] VITALS: BP 136/76
[2020-12-17] MEDS: ASPIRIN 81MG EC TABLET PO SCH (08:59)
[2020-12-17] MEDS: MULTIVITAMINS,THER W-MINERALS TABLET PO SCH (08:59)
[2020-12-17] MEDS: CALCITRIOL 0.25MCG CAPSULE PO SCH (08:59)
[2020-12-17] MEDS: FAMOTIDINE 20MG TABLET PO SCH (08:59)
[2020-12-17] MEDS: CARVEDILOL 12.5MG TABLET PO SCH ×2 (08:59→21:46)
[2020-12-17] MEDS: MYCOPHENOLATE MOFETIL 250MG CAPSULE PO SCH ×2 (08:59→21:46)
[2020-12-17] MEDS: SODIUM BICARBONATE 75 MEQ in SODIUM CHLORIDE 0.45% 1,000 ML IV SCH ×2 (09:00→23:37)
[2020-12-17] MEDS: AMLODIPINE 2.5MG TABLET PO SCH (09:02)
[2020-12-17 09:08] LABS: ALDOLASE 109.5 U/L (3.3-10.3)
[2020-12-17 10:23] LABS: HEMATOCRIT. 39.1 % (36.0-48.0); HEMOGLOBIN. 12.9 g/dL (12.0-16.0); MEAN CORPUSCULAR HEMOGLOBIN 27.7 pg (28.0-32.0); MEAN CORPUSCULAR VOLUME 83.6 fL (81.0-99.0); MEAN PLATELET VOLUME 8.3 fl (7.4-10.4); PLATELET 374 x1000/uL (130-400); RED BLOOD CELL COUNT 4.67 mill/uL (4.2-5.4); RED CELL DISTRIBUTION WIDTH 19.1 % (11.6-14.6)
[2020-12-17 12:00] VITALS: BP 121/71
[2020-12-17 16:00] VITALS: BP 140/116
[2020-12-17 18:47] LABS: PLATELET ESTIMATE NORMAL
[2020-12-17 20:00] VITALS: BP 140/69
[2020-12-17] MEDS: ENOXAPARIN 30MG/0.3ML SYR SUBCUT SCH (21:46)
[2020-12-18] VITALS: BP 133/56
[2020-12-18 04:00] VITALS: BP 115/86
[2020-12-18] MEDS: BLOOD SUGAR DIAGNOSTIC STRIP TEST SCH ×4 (06:12→21:25)
[2020-12-18 06:17] LABS: HIV SCREEN 4G Non Reactive (Non Reactive)
[2020-12-18] MEDS: METHYLPREDNISOLONE SOD SUCC 40 MG/ML VIAL IV SCH ×3 (07:09→21:22)
[2020-12-18] MEDS: FAMOTIDINE 20MG TABLET PO SCH (07:09)
[2020-12-18 07:15] LABS: CHLORIDE 100 mEq/L (98-107)
[2020-12-18] MEDS: INSULIN LISPRO 100 UNITS/ML SUBCUT SCH ×4 (07:17→21:41)
[2020-12-18 07:22] LABS: HEMATOCRIT. 36.7 % (36.0-48.0); MEAN CORPUSCULAR HEMOGLOBIN 27.7 pg (28.0-32.0); MEAN CORPUSCULAR VOLUME 84.5 fL (81.0-99.0); MEAN PLATELET VOLUME 8.4 fl (7.4-10.4); PLATELET 344 x1000/uL (130-400); RED BLOOD CELL COUNT 4.34 mill/uL (4.2-5.4); RED CELL DISTRIBUTION WIDTH 19.2 % (11.6-14.6)
[2020-12-18 07:55] LABS: CREATINE KINASE 9016 IU/L (26-192)
[2020-12-18 08:24] VITALS: BP 168/72
[2020-12-18] MEDS: MULTIVITAMINS,THER W-MINERALS TABLET PO SCH (09:09)
[2020-12-18] MEDS: CALCITRIOL 0.25MCG CAPSULE PO SCH (09:09)
[2020-12-18] MEDS: ASPIRIN 81MG EC TABLET PO SCH (09:09)
[2020-12-18] MEDS: CARVEDILOL 12.5MG TABLET PO SCH ×2 (09:10→21:19)
[2020-12-18] MEDS: MYCOPHENOLATE MOFETIL 250MG CAPSULE PO SCH ×2 (09:10→21:27)
[2020-12-18] MEDS: AMLODIPINE 2.5MG TABLET PO SCH (09:19)
[2020-12-18 12:00] VITALS: BP 152/80
[2020-12-18 16:00] VITALS: BP 148/75
[2020-12-18 17:02] LABS: PLATELET ESTIMATE NORMAL
[2020-12-18] MEDS: SODIUM BICARBONATE 75 MEQ in SODIUM CHLORIDE 0.45% 1,000 ML IV SCH (17:29)
[2020-12-18 20:00] VITALS: BP 167/77
[2020-12-18] MEDS: ENOXAPARIN 30MG/0.3ML SYR SUBCUT SCH (21:21)
[2020-12-18] MEDS: INSULIN GLARGINE UD 100 UNITS/ML SYR SUBCUT SCH (21:23)
[2020-12-19] VITALS: BP 144/72
[2020-12-19] MEDS: SODIUM BICARBONATE 75 MEQ in SODIUM CHLORIDE 0.45% 1,000 ML IV SCH ×2 (03:55→21:32)
[2020-12-19 04:00] VITALS: BP 149/72
[2020-12-19] MEDS: METHYLPREDNISOLONE SOD SUCC 40 MG/ML VIAL IV SCH ×3 (06:03→21:32)
[2020-12-19] MEDS: FAMOTIDINE 20MG TABLET PO SCH (06:07)
[2020-12-19] MEDS: BLOOD SUGAR DIAGNOSTIC STRIP TEST SCH ×4 (06:12→21:33)
[2020-12-19] MEDS: INSULIN LISPRO 100 UNITS/ML SUBCUT SCH ×4 (07:00→21:31)
[2020-12-19 07:35] LABS: HEMATOCRIT. 36.2 % (36.0-48.0); MEAN CORPUSCULAR HEMOGLOBIN 27.8 pg (28.0-32.0); MEAN CORPUSCULAR VOLUME 83.7 fL (81.0-99.0); MEAN PLATELET VOLUME 8.7 fl (7.4-10.4); PLATELET 336 x1000/uL (130-400); RED BLOOD CELL COUNT 4.32 mill/uL (4.2-5.4); RED CELL DISTRIBUTION WIDTH 18.9 % (11.6-14.6)
[2020-12-19 07:42] LABS: CHLORIDE 101 mEq/L (98-107)
[2020-12-19 08:00] VITALS: BP 114/67
[2020-12-19 08:22] LABS: CREATINE KINASE 8180 IU/L (26-192)
[2020-12-19] MEDS: CALCITRIOL 0.25MCG CAPSULE PO SCH (09:40)
[2020-12-19] MEDS: ASPIRIN 81MG EC TABLET PO SCH (09:40)
[2020-12-19] MEDS: MULTIVITAMINS,THER W-MINERALS TABLET PO SCH (09:40)
[2020-12-19] MEDS: CARVEDILOL 12.5MG TABLET PO SCH ×2 (09:41→21:33)
[2020-12-19] MEDS: MYCOPHENOLATE MOFETIL 250MG CAPSULE PO SCH ×2 (09:41→21:33)
[2020-12-19] MEDS: AMLODIPINE 2.5MG TABLET PO SCH (09:43)
[2020-12-19] MEDS: INSULIN GLARGINE UD 100 UNITS/ML SYR SUBCUT SCH ×2 (09:59→21:32)
[2020-12-19 12:00] VITALS: BP 124/68
[2020-12-19 14:47] LABS: PLATELET ESTIMATE NORMAL
[2020-12-19 16:00] VITALS: BP 155/70
[2020-12-19 20:00] VITALS: BP 128/74
[2020-12-19] MEDS: ENOXAPARIN 30MG/0.3ML SYR SUBCUT SCH (21:33)
[2020-12-20] VITALS: BP_SYST 140; BP_SYST 149; BP_DIAS 77; BP_DIAS 79
[2020-12-20 04:00] VITALS: BP 142/76
[2020-12-20] MEDS: METHYLPREDNISOLONE SOD SUCC 40 MG/ML VIAL IV SCH ×3 (06:08→22:18)
[2020-12-20] MEDS: FAMOTIDINE 20MG TABLET PO SCH (06:08)
[2020-12-20] MEDS: BLOOD SUGAR DIAGNOSTIC STRIP TEST SCH ×4 (07:10→21:00)
[2020-12-20] MEDS: INSULIN LISPRO 100 UNITS/ML SUBCUT SCH ×4 (07:40→22:17)
[2020-12-20 08:00] VITALS: BP 145/80
[2020-12-20 09:13] LABS: HEMATOCRIT. 36.8 % (36.0-48.0); MEAN CORPUSCULAR HEMOGLOBIN 27.3 pg (28.0-32.0); MEAN PLATELET VOLUME 8.4 fl (7.4-10.4); PLATELET 314 x1000/uL (130-400); RED BLOOD CELL COUNT 4.38 mill/uL (4.2-5.4); RED CELL DISTRIBUTION WIDTH 19.3 % (11.6-14.6)
[2020-12-20 09:22] LABS: CHLORIDE 102 mEq/L (98-107)
[2020-12-20 09:30] LABS: PHOSPHORUS 7.8 mg/dL (2.5-4.9)
[2020-12-20 10:02] LABS: CREATINE KINASE 8220 IU/L (26-192)
[2020-12-20] MEDS: MYCOPHENOLATE MOFETIL 250MG CAPSULE PO SCH ×2 (10:19→22:19)
[2020-12-20] MEDS: MULTIVITAMINS,THER W-MINERALS TABLET PO SCH (10:19)
[2020-12-20] MEDS: CARVEDILOL 12.5MG TABLET PO SCH ×2 (10:19→22:19)
[2020-12-20] MEDS: CALCITRIOL 0.25MCG CAPSULE PO SCH (10:19)
[2020-12-20] MEDS: ASPIRIN 81MG EC TABLET PO SCH (10:19)
[2020-12-20] MEDS: INSULIN GLARGINE UD 100 UNITS/ML SYR SUBCUT SCH ×2 (10:23→22:18)
[2020-12-20] MEDS: AMLODIPINE 2.5MG TABLET PO SCH (10:24)
[2020-12-20 12:00] VITALS: BP 145/80
[2020-12-20] MEDS: CALCIUM ACETATE 667MG CAPSULE PO SCH ×2 (14:19→18:30)
[2020-12-20 16:00] VITALS: BP 144/80
[2020-12-20 20:00] VITALS: BP 141/75
[2020-12-20] MEDS: ENOXAPARIN 30MG/0.3ML SYR SUBCUT SCH (22:18)
[2020-12-21] VITALS: BP 126/69
[2020-12-21 01:49] LABS: PLATELET ESTIMATE NORMAL
[2020-12-21 04:00] VITALS: BP 121/68
[2020-12-21] MEDS: FAMOTIDINE 20MG TABLET PO SCH (05:57)
[2020-12-21] MEDS: METHYLPREDNISOLONE SOD SUCC 40 MG/ML VIAL IV SCH ×3 (05:57→21:48)
[2020-12-21] MEDS: BLOOD SUGAR DIAGNOSTIC STRIP TEST SCH ×4 (06:46→21:47)
[2020-12-21] MEDS: INSULIN LISPRO 100 UNITS/ML SUBCUT SCH ×4 (06:46→21:00)
[2020-12-21 08:00] VITALS: BP 161/77
[2020-12-21 09:27] LABS: HEMATOCRIT. 37.8 % (36.0-48.0); HEMOGLOBIN. 12.3 g/dL (12.0-16.0); MEAN CORPUSCULAR HEMOGLOBIN 27.6 pg (28.0-32.0); MEAN PLATELET VOLUME 8.1 fl (7.4-10.4); PLATELET 302 x1000/uL (130-400); RED BLOOD CELL COUNT 4.45 mill/uL (4.2-5.4); RED CELL DISTRIBUTION WIDTH 19.6 % (11.6-14.6)
[2020-12-21 09:37] LABS: CHLORIDE 103 mEq/L (98-107)
[2020-12-21] MEDS: INSULIN GLARGINE UD 100 UNITS/ML SYR SUBCUT SCH ×2 (10:16→21:50)
[2020-12-21] MEDS: AMLODIPINE 2.5MG TABLET PO SCH (10:17)
[2020-12-21] MEDS: CALCIUM ACETATE 667MG CAPSULE PO SCH ×3 (10:17→18:07)
[2020-12-21] MEDS: ASPIRIN 81MG EC TABLET PO SCH (10:17)
[2020-12-21] MEDS: MYCOPHENOLATE MOFETIL 250MG CAPSULE PO SCH (10:17)
[2020-12-21] MEDS: MULTIVITAMINS,THER W-MINERALS TABLET PO SCH (10:17)
[2020-12-21] MEDS: CALCITRIOL 0.25MCG CAPSULE PO SCH (10:17)
[2020-12-21] MEDS: CARVEDILOL 12.5MG TABLET PO SCH ×2 (10:18→21:47)
[2020-12-21 10:44] LABS: CREATINE KINASE 8104 IU/L (26-192)
[2020-12-21 12:00] VITALS: BP 128/69
[2020-12-21] MEDS: ACETAMINOPHEN 325MG TABLET PO PRN (12:58)
[2020-12-21 13:12] LABS: PLATELET ESTIMATE NORMAL
[2020-12-21 16:00] VITALS: BP 138/87
[2020-12-21] MEDS ORDERED: LEVOFLOXACIN 750MG PREMIX 150 ML IV SCH (18:00)
[2020-12-21 20:00] VITALS: BP 133/77
[2020-12-21] MEDS: ENOXAPARIN 30MG/0.3ML SYR SUBCUT SCH (21:51)
[2020-12-21] MEDS: MYCOPHENOLATE MOFETIL 200MG/ML ORAL SUSP PO SCH (22:50)
[2020-12-22] VITALS (11 sets, daily range): BP systolic 84–147; BP diastolic 39–88
[2020-12-22] MEDS: FAMOTIDINE 20MG TABLET PO SCH (06:36)
[2020-12-22] MEDS: BLOOD SUGAR DIAGNOSTIC STRIP TEST SCH ×4 (06:37→20:30)
[2020-12-22] MEDS: METHYLPREDNISOLONE SOD SUCC 40 MG/ML VIAL IV SCH ×3 (06:37→21:46)
[2020-12-22] MEDS: INSULIN LISPRO 100 UNITS/ML SUBCUT SCH ×4 (06:41→20:30)
[2020-12-22 07:45] LABS: HEMOGLOBIN. 11.3 g/dL (12.0-16.0); MEAN CORPUSCULAR HEMOGLOBIN 27.8 pg (28.0-32.0); MEAN PLATELET VOLUME 8.2 fl (7.4-10.4); PLATELET 241 x1000/uL (130-400); RED BLOOD CELL COUNT 4.05 mill/uL (4.2-5.4); RED CELL DISTRIBUTION WIDTH 19.4 % (11.6-14.6)
[2020-12-22 07:47] LABS: CHLORIDE 104 mEq/L (98-107)
[2020-12-22 08:25] LABS: CREATINE KINASE 6993 IU/L (26-192)
[2020-12-22] MEDS: AMLODIPINE 2.5MG TABLET PO SCH (09:00)
[2020-12-22] MEDS: CALCIUM ACETATE 667MG CAPSULE PO SCH ×3 (10:24→18:27)
[2020-12-22] MEDS: CALCITRIOL 0.25MCG CAPSULE PO SCH (10:25)
[2020-12-22] MEDS: CARVEDILOL 12.5MG TABLET PO SCH (10:25)
[2020-12-22] MEDS: MULTIVITAMINS,THER W-MINERALS TABLET PO SCH (10:25)
[2020-12-22] MEDS: ASPIRIN 81MG EC TABLET PO SCH (10:26)
[2020-12-22] MEDS: MYCOPHENOLATE MOFETIL 200MG/ML ORAL SUSP PO SCH (10:26)
[2020-12-22] MEDS: INSULIN GLARGINE UD 100 UNITS/ML SYR SUBCUT SCH ×2 (10:28→22:00)
[2020-12-22 12:41] LABS: BG BASE EXCESS -2.8 mmol/L (-2.0-2.0); BG CARBOXYHEMOGLOBIN 0.1 % (0.5-1.5); BG DEOXYHEMOGLOBIN 6.2 % (0.0-5.0); BG HCO3 ACT 25.3 mmol/L (22.0-26.0); BG METHEMOGLOBIN 0.3 % (0.0-1.5); BG OXYGEN SATURATION 93.8 % (92.0-98.5); BG OXYHEMOGLOBIN 93.4 % (94.0-97.0); BG PCO2 60.3 mmHg (35.0-45.0); BG PH 7.241 (7.350-7.450); BG PO2 83.6 mmHg (75.0-100.0); BG SAMPLE SITE RIGHT RADIAL; BG TOTAL HEMOGLOBIN 11.7 g/dL (12.0-18.0); BG VENT MODE NASAL CANNULA
[2020-12-22 13:52] LABS: BG CARBOXYHEMOGLOBIN 0.1 % (0.5-1.5); BG HCO3 ACT 24.2 mmol/L (22.0-26.0); BG METHEMOGLOBIN 0.3 % (0.0-1.5); BG OXYHEMOGLOBIN 98.6 % (94.0-97.0); BG PCO2 53.4 mmHg (35.0-45.0); BG PH 7.275 (7.350-7.450); BG PO2 224.8 mmHg (75.0-100.0); BG SAMPLE SITE RIGHT RADIAL; BG TOTAL HEMOGLOBIN 11.4 g/dL (12.0-18.0); BG VENT MODE NASAL CANNULA
[2020-12-22] MEDS ORDERED: IPRATROPIUM/ALBUTEROL 0.5-3(2.5)MG/3ML NEB HHN SCH (16:00)
[2020-12-22] MEDS ORDERED: THIAMINE HCL 100MG TABLET PO SCH (18:00)
[2020-12-22] MEDS ORDERED: CEFEPIME 1,000 MG in DEXTROSE 5% WATER 50 ML IV SCH (18:00)
[2020-12-22] MEDS: SODIUM CHLORIDE 0.9% 500 ML IV NR ×2 (18:27→18:36)
[2020-12-22] MEDS ORDERED: VANCOMYCIN 1500MG in DEXTROSE 5% WATER 250ML IV NR (18:30)
[2020-12-22] MEDS: SODIUM CHLORIDE 0.9% 1,000 ML IV SCH ×2 (18:58→20:21)
[2020-12-22] MEDS: ENOXAPARIN 30MG/0.3ML SYR SUBCUT SCH (21:46)
[2020-12-23] MEDS ORDERED: METRONIDAZOLE 500MG TABLET PO SCH
[2020-12-23 00:06] LABS: BG CARBOXYHEMOGLOBIN 0.3 % (0.5-1.5); BG DEOXYHEMOGLOBIN 17.9 % (0.0-5.0); BG FRACTION INSPIRED OXYGEN 100; BG METHEMOGLOBIN 0.3 % (0.0-1.5); BG OXYHEMOGLOBIN 81.5 % (94.0-97.0); BG PCO2 67.3 mmHg (35.0-45.0); BG PH 7.204 (7.350-7.450); BG PO2 56.7 mmHg (75.0-100.0); BG SAMPLE SITE RIGHT RADIAL; BG TOTAL HEMOGLOBIN 11.4 g/dL (12.0-18.0); BG VENT MODE MASK - NRB
[2020-12-23 00:14] LABS: CHLORIDE 105 mEq/L (98-107); HEMATOCRIT. 32.2 % (36.0-48.0); HEMOGLOBIN. 10.6 g/dL (12.0-16.0); MEAN CORPUSCULAR HEMOGLOBIN 28.3 pg (28.0-32.0); MEAN CORPUSCULAR VOLUME 85.3 fL (81.0-99.0); MEAN PLATELET VOLUME 8.1 fl (7.4-10.4); PLATELET 183 x1000/uL (130-400); RED BLOOD CELL COUNT 3.77 mill/uL (4.2-5.4); RED CELL DISTRIBUTION WIDTH 19.6 % (11.6-14.6)
[2020-12-23] MEDS ORDERED: NOREPINEPHRINE 32 MG in DEXT 5% WATER 218 ML IV PRN (00:30)
[2020-12-23] MEDS ORDERED: ATROPINE SULFATE 1MG/10ML SYR ONE (00:58)
[2020-12-23] MEDS ORDERED: DOPAMINE 800MG PREMIX (DOUBLE) 250 ML IV PRN (01:00)
[2020-12-23] MEDS ORDERED: ATROPINE SULFATE 1MG/10ML SYR IV NR (01:00)
[2020-12-23 01:15] LABS: PHOSPHORUS 8.3 mg/dL (2.5-4.9)
[2020-12-23 04:07] LABS: ANA IFA Negative (.)
[2020-12-23 07:16] LABS: PLATELET ESTIMATE NORMAL
[2020-12-23 07:55] LABS: PLATELET ESTIMATE NORMAL
[2020-12-23] MEDS ORDERED: SODIUM BICARBONATE 8.4% 1 MEQ/ML 50ML SYR IV ONE (08:24)
[2020-12-23] MEDS ORDERED: AMIODARONE HCL 50MG/ML 3ML VIAL IV ONE (08:24)
[2020-12-23] MEDS ORDERED: EPINEPHRINE 0.1MG/ML (1:10,000) 10ML SYR ONE (08:24)
[2020-12-23] MEDS ORDERED: CALCIUM CHLORIDE 1GM/10ML SYR IV ONE (08:24)
[2020-12-23] MEDS ORDERED: FOLIC ACID 1MG TABLET PO SCH (09:00)
[2020-12-23] MEDS ORDERED: LEVOFLOXACIN 750MG PREMIX 150 ML IV SCH (11:00)
[2020-12-23] MEDS ORDERED: CEFEPIME 1,000 MG in DEXTROSE 5% WATER 50 ML IV SCH (13:00)
[2020-12-23] MEDS ORDERED: VANCOMYCIN 500 MG PREMIX 100 ML IV SCH (20:00)
== END 2020-12-23 01:19 | DRG 545 ==
LOC: ER 17:20 → MICUSO 21:09 → 7EST 12-08 10:28 → 8WST 12-08 10:43 → 3WST 12-22 14:39 → CVICU 12-22 23:46
PROVIDERS: ADMIT Internal Medicine Pulmonary Disease; ATTEND Internal Medicine Pulmonary Disease
PROC: 4A10X4Z Monitoring of Central Nervous Electrical Activity, External Approach (ICD-10-PCS; principal; 2020-12-17)
PROC: 5A12012 Performance of Cardiac Output, Single, Manual (ICD-10-PCS; 2020-12-23)
DX: M33.20 Polymyositis, organ involvement unspecified (principal); A41.9 Sepsis, unspecified organism; E43 Unspecified severe protein-calorie malnutrition; G92.8 Other toxic encephalopathy; J18.9 Pneumonia, unspecified organism; N13.2 Hydronephrosis with renal and ureteral calculous obstruction; N17.9 Acute kidney failure, unspecified; N18.4 Chronic kidney disease, stage 4 (severe); B15.9 Hepatitis A without hepatic coma; I13.0 Hypertensive heart and chronic kidney disease with heart failure and stage 1 through stage 4 chronic kidney disease, or unspecified chronic kidney disease; I50.32 Chronic diastolic (congestive) heart failure; I31.3 Pericardial effusion (noninflammatory); J44.0 Chronic obstructive pulmonary disease with (acute) lower respiratory infection; D64.9 Anemia, unspecified; E11.22 Type 2 diabetes mellitus with diabetic chronic kidney disease; E11.51 Type 2 diabetes mellitus with diabetic peripheral angiopathy without gangrene; E53.8 Deficiency of other specified B group vitamins; B02.9 Zoster without complications; E83.51 Hypocalcemia; E87.5 Hyperkalemia; F03.90 Unspecified dementia, unspecified severity, without behavioral disturbance, psychotic disturbance, mood disturbance, and anxiety; F41.9 Anxiety disorder, unspecified; I07.1 Rheumatic tricuspid insufficiency; I46.9 Cardiac arrest, cause unspecified; M35.00 Sjogren syndrome, unspecified; K21.9 Gastro-esophageal reflux disease without esophagitis; M19.90 Unspecified osteoarthritis, unspecified site; R26.9 Unspecified abnormalities of gait and mobility; R94.31 Abnormal electrocardiogram [ECG] [EKG]; Z20.822 Contact with and (suspected) exposure to COVID-19; M48.02 Spinal stenosis, cervical region; T38.0X5A Adverse effect of glucocorticoids and synthetic analogues, initial encounter; E78.5 Hyperlipidemia, unspecified; R29.6 Repeated falls; E78.00 Pure hypercholesterolemia, unspecified; E87.8 Other disorders of electrolyte and fluid balance, not elsewhere classified; I25.2 Old myocardial infarction; Z86.73 Personal history of transient ischemic attack (TIA), and cerebral infarction without residual deficits; Z88.2 Allergy status to sulfonamides; Z76.82 Awaiting organ transplant status; Z87.891 Personal history of nicotine dependence; Z68.31 Body mass index [BMI] 31.0-31.9, adult; Z88.0 Allergy status to penicillin; Z79.82 Long term (current) use of aspirin; Z79.899 Other long term (current) drug therapy; Y92.89 Other specified places as the place of occurrence of the external cause; Y95 Nosocomial condition
CPT/HCPCS: 36415; 36600; 70551; 71045; 72141; 72146; 72148; 73220; 73718; 74018; 76770; 80048; 80053; 80076; 81003; 82085; 82164; 82248; 82375; 82550; 82553; 82570; 82595; 82607; 82728; 82746; 82805; 82962; 82977; 83036; 83519; 83520; 83540; 83550; 83735; 83880; 84100; 84145; 84155; 84156; 84165; 84439; 84443; 84484; 85025; 85651; 86140; 86147; 86160; 86225; 86235; 86256; 86431; 86592; 86645; 86705; 86709; 86780; 86803; 87340; 87389; 87426; 93005; 93306; 93970; 94640; 95816; 97110; 97116; 97162; 97166; 97530; 99285; A6261; C1893; J0282; J0461; J0692; J1650; J1815; J1940; J1956; J2060; J2405; J2920; J3370; J3490; J7030; J7040; J7060; J7517; A4315